=== PATIENT | male | born 1955 ===

== ENCOUNTER → 2016-03-11 | Outpatient (CLI) | payer BC ==
--- NOTE | 2016-03-11 19:40 | DX ---
Left Ankle - 3 Views dated March 11, 2016 Indication: Pain. History of gout. Technique: AP, mortise, and lateral views. Comparison: None. Findings: The normally mineralized bones are anatomically aligned. No fracture or bone lesion. Joint spaces are well preserved. Small spurs emanate off the medial and lateral jointline. No erosions or t ophus formation. Impression: Minimal osteoarthritis. No evidence of gout arthropathy.
--- NOTE | 2016-03-11 19:58 | DX ---
Left Foot - 3 Views dated March 11, 2016 Indication: Pain. History of gout. Technique: AP lateral and oblique views. Findings: The normally mineralized bones are anatomically aligned. Small erosions are present along t he medial aspect of the first metatarsal head, lateral aspect of the second metatarsal head, and stevo g the medial aspect of the fifth metatarsal head. Joint spaces are well preserved. No soft tissue beau cification. Impression: Erosions involving the first, second and fifth metatarsal heads. Differential diagnosis i ncludes gout arthropathy versus rheumatoid arthropathy.
== END ==
LOC: BRMIMAGING 16:01
PROVIDERS: ATTEND Family Medicine
DX: M19.072 Primary osteoarthritis, left ankle and foot (principal); Z87.39 Personal history of other diseases of the musculoskeletal system and connective tissue
CPT/HCPCS: 73610-PO; 73630-PO